=== PATIENT | female | born 1990 | race Caucasian/White ===

== ENCOUNTER 2018-07-01 07:42 | Inpatient (IN) | payer MEDICAID ==
[2018-07-01] MEDS ORDERED: DEXTROSE 5%-LR 1,000 ML IV (08:14)
[2018-07-01] MEDS ORDERED: METHYLERGONOVINE 0.2 MG INJ IM ×2 (08:30→11:30)
[2018-07-01] MEDS ORDERED: MISOPROSTOL 200 MCG TAB PR ×2 (08:30→11:30)
[2018-07-01] MEDS ORDERED: OXYTOCIN 30 UNITS/LR 500 ML IV ×2 (08:30→11:30)
[2018-07-01] MEDS ORDERED: CARBOPROST 250 MCG INJ IM ×2 (08:30→11:30)
[2018-07-01] MEDS ORDERED: LIDOCAINE 1% (MPF) 30 ML INJ INJ (08:30)
[2018-07-01] MEDS ORDERED: BUTORPHANOL 2 MG INJ IV (08:30)
[2018-07-01] MEDS: AMPICILLIN 2 GM/NS (PMX) 100 ML IV (08:50)
[2018-07-01] MEDS: LACTATED RINGER'S 1,000 ML IV (08:50)
[2018-07-01 08:54] LABS: ADD MAN DIFF? NO
[2018-07-01 09:22] LABS: INR 0.96; PROTIME 12.9 Sec (11.9-14.9)
[2018-07-01 09:23] LABS: PARTIAL THROMBOPLASTIN TIME 24.4 Sec (23.0-35.0)
[2018-07-01 09:27] LABS: BASOPHILS % 0.2 % (0.0-2.0); EOSINOPHILS # 0.1 10^3/ul (0.0-0.5); EOSINOPHILS % 0.5 % (0.0-7.0); HEMOGLOBIN 12.6 g/dl (12.0-16.0); LYMPHOCYTES # 1.9 10^3/ul (0.8-2.9); LYMPHOCYTES % 11.9 % (15.0-51.0); MEAN CORPUSCULAR HEMOGLOBIN 27.5 pg (29.0-33.0); MEAN CORPUSCULAR HGB CONC 33.2 g/dl (32.0-37.0); MEAN CORPUSCULAR VOLUME 82.8 fl (82.0-101.0); MEAN PLATELET VOLUME 11.6 fl (7.4-10.4); MONOCYTE # 0.8 10^3/ul (0.3-0.9); MONOCYTES % 5.2 % (0.0-11.0); NEUTROPHILS % 81.6 % (39.0-77.0); PLATELET COUNT 253 10^3/UL (140-415); RED BLOOD COUNT 4.59 10^6/ul (4.20-5.40); RED CELL DISTRIBUTION WIDTH 13.5 % (11.5-14.5)
[2018-07-01 09:27] LABS: WHITE BLOOD COUNT 15.9 10^3/ul (4.8-10.8)
[2018-07-01] MEDS: IBUPROFEN 600 MG TAB PO ×4 (09:48→23:54)
[2018-07-01] MEDS: OXYTOCIN 30 UNITS/LR 500 ML IV ×3 (09:48→14:20)
[2018-07-01] MEDS: LACTATED RINGER'S 1,000 ML IV* ×2 (11:29→20:00)
[2018-07-01] MEDS: DEXTROSE 5%-LR 1,000 ML IV ×2 (11:29→20:00)
[2018-07-01] MEDS ORDERED: ZOLPIDEM 5 MG TAB PO (11:30)
[2018-07-01] MEDS ORDERED: ACETAMINOPHEN 325 MG TAB PO (11:30)
[2018-07-01] MEDS ORDERED: METHYLERGONOVINE 0.2 MG TAB PO (11:30)
[2018-07-01] MEDS ORDERED: ONDANSETRON 4 MG INJ IV (11:30)
[2018-07-01] MEDS ORDERED: DIPHENHYDRAMINE 50 MG INJ IV (11:30)
[2018-07-01] MEDS ORDERED: DIBUCAINE 1% 30 GM OINT TOP (11:30)
[2018-07-01] MEDS: OXYCODONE/ASPIRIN (4.88/325) TAB PO (11:48)
[2018-07-01] MEDS: BENZOCAINE 20% 56 ML SPRAY TOP (11:49)
[2018-07-01] MEDS: WITCH HAZEL/GLYCERIN PAD PR (11:49)
[2018-07-01] MEDS: LANOLIN 7 GM TUBE TOP (11:49)
[2018-07-01] MEDS ORDERED: AMPICILLIN 1 GM/NS (PMX) 50 ML IV (12:30)
[2018-07-01] MEDS ORDERED: HYDROCODONE/APAP (5/325) TAB PO (14:30)
[2018-07-01 15:13] LABS: RAPID PLASMA REAGIN NONREACTIVE (NR)
[2018-07-02] MEDS: DEXTROSE 5%-LR 1,000 ML IV (03:29)
[2018-07-02] MEDS: LACTATED RINGER'S 1,000 ML IV* (03:29)
[2018-07-02] MEDS: IBUPROFEN 600 MG TAB PO ×3 (06:00→17:47)
[2018-07-02 08:09] LABS: ADD MAN DIFF? NO
[2018-07-02 08:12] LABS: WHITE BLOOD COUNT 9.9 10^3/ul (4.8-10.8)
[2018-07-02 08:12] LABS: BASOPHILS % 0.3 % (0.0-2.0); EOSINOPHILS # 0.3 10^3/ul (0.0-0.5); EOSINOPHILS % 3.3 % (0.0-7.0); HEMATOCRIT 31.2 % (37.0-47.0); HEMOGLOBIN 10.2 g/dl (12.0-16.0); LYMPHOCYTES # 1.9 10^3/ul (0.8-2.9); LYMPHOCYTES % 19.6 % (15.0-51.0); MEAN CORPUSCULAR HEMOGLOBIN 27.4 pg (29.0-33.0); MEAN CORPUSCULAR HGB CONC 32.7 g/dl (32.0-37.0); MEAN CORPUSCULAR VOLUME 83.9 fl (82.0-101.0); MEAN PLATELET VOLUME 11.3 fl (7.4-10.4); MONOCYTE # 0.5 10^3/ul (0.3-0.9); MONOCYTES % 5.1 % (0.0-11.0); NEUTROPHIL # 7.1 10^3/ul (1.6-7.5); NEUTROPHILS % 71.2 % (39.0-77.0); PLATELET COUNT 197 10^3/UL (140-415); RED BLOOD COUNT 3.72 10^6/ul (4.20-5.40); RED CELL DISTRIBUTION WIDTH 13.7 % (11.5-14.5)
[2018-07-02] MEDS: INFLUENZA VIRUS VACCINE 0.5 ML (DISPENSING) IM* (09:00)
[2018-07-02] MEDS: SENNA/DOCUSATE NA (8.6MG/50MG) TAB PO (09:39)
[2018-07-02] MEDS: OXYCODONE/ASPIRIN (4.88/325) TAB PO (21:31)
[2018-07-03] MEDS: IBUPROFEN 600 MG TAB PO ×4 (01:04→12:41)
[2018-07-03] MEDS: SENNA/DOCUSATE NA (8.6MG/50MG) TAB PO (08:36)
[2018-07-03] MEDS: WITCH HAZEL/GLYCERIN PAD PR (08:36)
[2018-07-03] MEDS: BENZOCAINE 20% 56 ML SPRAY TOP (08:36)
[2018-07-03] MEDS: DIPHTH/TET/ACEL PERTUSS (ADULT) 0.5 ML VIAL IM* (09:00)
[2018-07-03] MEDS: MEASLES,MUMPS,RUBELLA VACCINE INJ SC* (09:53)
== END 2018-07-03 16:30 | disposition home or self-care (01) | DRG 807 ==
LOC: OBT 07:42 → L-D 07:42 → OBT 08:07 → L-D 08:00 → PP1 10:43
PROVIDERS: Obstetrics & Gynecology
PROC: 10E0XZZ Delivery of Products of Conception, External Approach (ICD-10-PCS; principal; 2018-07-01)
DX: O36.5930 Maternal care for other known or suspected poor fetal growth, third trimester, not applicable or unspecified (principal); Z37.0 Single live birth; O90.89 Other complications of the puerperium, not elsewhere classified; M79.662 Pain in left lower leg; M79.661 Pain in right lower leg; Z3A.39 39 weeks gestation of pregnancy
CPT/HCPCS: 85025; 85610; 85730; 86592; 86900; 86901; 90686; 93970